=== PATIENT | male | born 1960 | race Caucasian/White ===

== ENCOUNTER → 2018-07-14 | Outpatient (CLI) | payer OTHER ==
[~2018-07-14] MED LIST: Anaspaz0.125 MG PO; CIPRO500 MG PO; Flagyl500 MG PO; GLIP10 PO; Imitrex100 MG PO; Inderal60 MG PO; Indomethacin50 MG PO; METF500C PO; Norco 10-325 T1 EACH PO; OMEP40CA12 PO; OXYC5 PO; Percocet 5-3251 EACH PO; Zofran Odt4 MG SL
[2018-07-14 13:12] LABS: BASOPHILS ABSOLUTE AUTO 0.06 K/mm3 (0.00-0.23); BASOPHILS PERCENT AUTO 1 % (0-2); EOSINOPHILS PERCENT AUTO 1 % (0-6); Hematocrit 44.8 % (37.0-53.0); Hemoglobin 15.2 g/dL (13.5-17.5); IMMATURE GRAN ABSOLUTE AUTO 0.02 K/mm3 (0.00-0.10); IMMATURE GRAN PERCENT AUTO 0 % (0-1); LYMPHOCYTES ABSOLUTE AUTO 1.63 K/mm3 (0.84-5.20); LYMPHOCYTES PERCENT AUTO 22 % (21-46); MONOCYTES ABSOLUTE AUTO 0.92 K/mm3 (0.16-1.47); MONOCYTES PERCENT AUTO 12 % (4-13); Mean Corpuscular HGB 31.5 pg (26.0-34.0); Mean Corpuscular HGB Conc 33.9 g/dL (31.5-36.5); Mean Corpuscular Volume 93 fL (80-100); Mean Platelet Volume 9.5 fL (9.1-12.4); NEUTROPHILS ABSOLUTE AUTO 4.78 K/mm3 (1.96-9.15); NEUTROPHILS PERCENT AUTO 64 % (41-73); Platelet Count 311 K/mm3 (150-400); RDW Coefficient Variation 12.6 % (11.7-14.2); RDW Standard Deviation 43.5 fL (35.1-46.3); Red Blood Cell Count 4.82 M/mm3 (4.30-5.90); White Blood Cell Count 7.51 K/mm3 (4.00-11.30)
[2018-07-14 13:25] LABS: Alanine Aminotransfer (ALT/SGP 54 U/L (12-78); Albumin, Blood 4.1 g/dL (3.4-5.0); Albumin/Globulin Ratio 1.1 (0.8-1.8); Alk Phos 67 U/L (50-136); Anion Gap 8 mmol/L (6-16); Aspartate Aminotrans (AST/SGOT 31 U/L (12-37); Bilirubin, Total 0.8 mg/dL (0.1-1.0); Blood Urea Nitrogen 14 mg/dL (8-24); CO2, Blood 27 mmol/L (21-32); Calcium, Blood 9.5 mg/dL (8.5-10.1); Chloride, Blood 101 mmol/L (98-108); Creatinine, Blood 0.74 mg/dL (0.60-1.20); Globulin, Blood 3.9 g/dL (2.2-4.0); Glomerular Filtration Rate >60 (60-); Glucose, Blood 186 mg/dL (70-99); Potassium, Blood 4.4 mmol/L (3.5-5.5); Prostate Specific Antigen 0.316 ng/mL (0.000-4.000); Sodium, Blood 136 mmol/L (136-145)
== END | disposition home or self-care (01) ==
LOC: LAB 10:40 → LAB SHORT 10:40
PROVIDERS: Family Medicine
DX: Z12.5 Encounter for screening for malignant neoplasm of prostate (principal); I10 Essential (primary) hypertension
CPT/HCPCS: 80048; 80053; 85025; G0103

== ENCOUNTER 2019-02-23 10:37 | Emergency (ER) | payer OTHER ==
[~2019-02-23] VITALS: Ht 182.9 cm; Wt 136.1 kg
[2019-02-23] MEDS ORDERED: METF500 PO (10:57)
[2019-02-23 11:05] LABS: Source, Urine Clean Catch
[2019-02-23 11:07] LABS: BASOPHILS ABSOLUTE AUTO 0.06 K/mm3 (0.00-0.23); BASOPHILS PERCENT AUTO 1 % (0-2); EOSINOPHILS ABSOLUTE AUTO 0.12 K/mm3 (0.00-0.68); EOSINOPHILS PERCENT AUTO 2 % (0-6); Hematocrit 45.3 % (37.0-53.0); Hemoglobin 15.5 g/dL (13.5-17.5); IMMATURE GRAN ABSOLUTE AUTO 0.02 K/mm3 (0.00-0.10); IMMATURE GRAN PERCENT AUTO 0 % (0-1); LYMPHOCYTES ABSOLUTE AUTO 1.64 K/mm3 (0.84-5.20); LYMPHOCYTES PERCENT AUTO 21 % (21-46); MONOCYTES PERCENT AUTO 14 % (4-13); Mean Corpuscular HGB 31.3 pg (26.0-34.0); Mean Corpuscular HGB Conc 34.2 g/dL (31.5-36.5); Mean Corpuscular Volume 92 fL (80-100); Mean Platelet Volume 9.5 fL (9.1-12.4); NEUTROPHILS ABSOLUTE AUTO 4.95 K/mm3 (1.96-9.15); NEUTROPHILS PERCENT AUTO 63 % (41-73); Platelet Count 313 K/mm3 (150-400); RDW Coefficient Variation 12.7 % (11.7-14.2); RDW Standard Deviation 42.4 fL (35.1-46.3); Red Blood Cell Count 4.95 M/mm3 (4.30-5.90); White Blood Cell Count 7.89 K/mm3 (4.00-11.30)
[2019-02-23 11:09] LABS: Bilirubin, Urine Neg (Neg); Blood, Urine Neg (Neg); Glucose Qualitative, Urine 3+ (Neg); Ketones, Urine 3+ (Neg); Leukocyte Esterase, Urine 1+ (Neg); Nitrite, Urine Neg (Neg); Protein, Urine 2+ (Neg); Specific Gravity, Urine 1.025 (1.003-1.022); Urobilinogen, Urine 1+ (Normal)
[2019-02-23 11:16] LABS: Appearance, Urine Clear (Clear); Color, Urine Amber (P-Yellow)
[2019-02-23 11:19] LABS: Bacteria Rare /hpf; Calcium Oxalate Crystals Rare /hpf; Mucus Light ({null, 0-Heavy}); Red Blood Cells, Urine 0-2 /hpf (0-2); Squamous Epithelial Cells Rare /hpf (Few)
[2019-02-23 11:27] LABS: Alanine Aminotransfer (ALT/SGP 70 U/L (12-78); Albumin, Blood 4.2 g/dL (3.4-5.0); Albumin/Globulin Ratio 1.1 (0.8-1.8); Alk Phos 74 U/L (50-136); Anion Gap 8 mmol/L (6-16); Aspartate Aminotrans (AST/SGOT 38 U/L (12-37); Blood Urea Nitrogen 16 mg/dL (8-24); Bun/Creatinine Ratio 21.7 (12.0-20.0); CO2, Blood 26 mmol/L (21-32); Calcium, Blood 9.7 mg/dL (8.5-10.1); Chloride, Blood 105 mmol/L (98-108); Creatinine, Blood 0.74 mg/dL (0.60-1.20); Globulin, Blood 3.9 g/dL (2.2-4.0); Glomerular Filtration Rate >60 (60-); Glucose, Blood 201 mg/dL (70-99); Potassium, Blood 4.2 mmol/L (3.5-5.5); Sodium, Blood 139 mmol/L (136-145); Total Protein, Blood 8.1 g/dL (6.4-8.2)
[2019-02-23] MEDS ORDERED: Protonix40 MG PO (12:34)
[2019-02-23] MEDS ORDERED: ONDA4ODT MM (12:34)
== END 2019-02-23 12:49 | disposition home or self-care (01) ==
LOC: ER 10:37
PROVIDERS: Emergency Medicine
DX: K80.20 Calculus of gallbladder without cholecystitis without obstruction (principal); K21.9 Gastro-esophageal reflux disease without esophagitis; I10 Essential (primary) hypertension; G43.909 Migraine, unspecified, not intractable, without status migrainosus; E11.9 Type 2 diabetes mellitus without complications; Z88.8 Allergy status to other drugs, medicaments and biological substances; Z79.899 Other long term (current) drug therapy; Z79.84 Long term (current) use of oral hypoglycemic drugs
CPT/HCPCS: 36415; 74177; 80053; 81001; 83690; 85025; 87086; 93005; 93010; 96374-59; 99284-25; J1885; Q9967

== ENCOUNTER 2020-01-11 09:45 | Emergency (ER) | payer OTHER ==
[~2020-01-11] VITALS: Ht 182.9 cm; Wt 131.5 kg
[~2020-01-11 09:45] MED LIST changes: +METF500 PO; +ONDA4ODT MM; +Protonix40 MG PO
[2020-01-11 10:45] LABS: BASOPHILS ABSOLUTE AUTO 0.04 K/mm3 (0.00-0.23); BASOPHILS PERCENT AUTO 1 % (0-2); EOSINOPHILS ABSOLUTE AUTO 0.13 K/mm3 (0.00-0.68); EOSINOPHILS PERCENT AUTO 2 % (0-6); Hematocrit 43.5 % (37.0-53.0); Hemoglobin 14.5 g/dL (13.5-17.5); IMMATURE GRAN ABSOLUTE AUTO 0.02 K/mm3 (0.00-0.10); IMMATURE GRAN PERCENT AUTO 0 % (0-1); LYMPHOCYTES PERCENT AUTO 20 % (21-46); MONOCYTES ABSOLUTE AUTO 0.73 K/mm3 (0.16-1.47); MONOCYTES PERCENT AUTO 11 % (4-13); Mean Corpuscular HGB 31.2 pg (26.0-34.0); Mean Corpuscular HGB Conc 33.3 g/dL (31.5-36.5); Mean Corpuscular Volume 94 fL (80-100); Mean Platelet Volume 9.4 fL (9.1-12.4); NEUTROPHILS ABSOLUTE AUTO 4.37 K/mm3 (1.96-9.15); NEUTROPHILS PERCENT AUTO 66 % (41-73); Platelet Count 278 K/mm3 (150-400); RDW Coefficient Variation 12.5 % (11.7-14.2); Red Blood Cell Count 4.65 M/mm3 (4.30-5.90); White Blood Cell Count 6.59 K/mm3 (4.00-11.30)
[2020-01-11 11:07] LABS: Alanine Aminotransfer (ALT/SGP 52 U/L (12-78); Albumin, Blood 3.8 g/dL (3.4-5.0); Albumin/Globulin Ratio 1.1 (0.8-1.8); Alk Phos 64 U/L (50-136); Anion Gap 6 mmol/L (6-16); Aspartate Aminotrans (AST/SGOT 31 U/L (12-37); Bilirubin, Total 0.9 mg/dL (0.1-1.0); Blood Urea Nitrogen 15 mg/dL (8-24); CO2, Blood 28 mmol/L (21-32); Calcium, Blood 9.3 mg/dL (8.5-10.1); Chloride, Blood 104 mmol/L (98-108); Creatinine, Blood 0.79 mg/dL (0.60-1.20); Globulin, Blood 3.6 g/dL (2.2-4.0); Glomerular Filtration Rate >60 (60-); Glucose, Blood 246 mg/dL (70-99); Sodium, Blood 138 mmol/L (136-145); Total Protein, Blood 7.4 g/dL (6.4-8.2)
[2020-01-11 11:23] LABS: Source, Urine Clean Catch
[2020-01-11 11:44] LABS: Appearance, Urine Cloudy (Clear); Bilirubin, Urine Neg (Neg); Blood, Urine 5+ (Neg); Color, Urine Amber (P-Yellow); Glucose Qualitative, Urine 4+ (Neg); Ketones, Urine 2+ (Neg); Leukocyte Esterase, Urine 1+ (Neg); Nitrite, Urine Neg (Neg); Protein, Urine 3+ (Neg); Specific Gravity, Urine 1.025 (1.003-1.022); Urobilinogen, Urine NORM (Normal)
[2020-01-11 12:09] LABS: Bacteria Rare /hpf; Red Blood Cells, Urine TNTC /hpf (0-2); Squamous Epithelial Cells Few /hpf (Few)
[2020-01-11] MEDS ORDERED: HYDR1TAB94 PO (12:45)
[2020-01-26] MEDS ORDERED: OXYACE7.5T PO (16:27)
== END 2020-01-11 12:55 | disposition home or self-care (01) ==
LOC: ER 09:45
PROVIDERS: Emergency Medicine
DX: N13.2 Hydronephrosis with renal and ureteral calculous obstruction (principal); Z88.8 Allergy status to other drugs, medicaments and biological substances; Z79.899 Other long term (current) drug therapy; I10 Essential (primary) hypertension; E11.9 Type 2 diabetes mellitus without complications
CPT/HCPCS: 36415; 74176; 80053; 81001; 85025; 87077; 87086; 87186; 96374; 96375; 99284-25; J1170; J1885

== ENCOUNTER 2020-01-27 06:37 | Emergency (ER) | payer OTHER ==
[~2020-01-27] VITALS: Ht 182.9 cm; Wt 129.3 kg
[~2020-01-27 06:37] MED LIST changes: +HYDR1TAB94 PO; +OXYACE7.5T PO
[2020-01-27 08:00] LABS: Calcium, Ionized (POC) 1.13 mmol/L (1.10-1.46); Chloride (POC) 101 mmol/L (98-108); Creatinine (POC) 1.3 mg/dL (0.8-1.3); Glucose (ISTAT POC) 214 mg/dL (70-99); Hemoglobin (POC) 13.9 g/dL (13.5-17.5); Potassium (POC) 4.4 mmol/L (3.5-5.5); Sodium (POC) 136 mmol/L (135-148); Total CO2 (POC) 23 mmol/L (21-32)
[2020-01-27 08:11] LABS: Source, Urine Clean Catch
[2020-01-27 08:17] LABS: Appearance, Urine Clear (Clear); Bilirubin, Urine Neg (Neg); Blood, Urine Neg (Neg); Color, Urine Yellow (P-Yellow); Glucose Qualitative, Urine 3+ (Neg); Ketones, Urine 1+ (Neg); Leukocyte Esterase, Urine Neg (Neg); Nitrite, Urine Neg (Neg); Protein, Urine Neg (Neg); Urobilinogen, Urine NORM (Normal)
[2020-01-27] MEDS ORDERED: Percocet 7.5-31 EACH PO (08:40)
[2020-01-27] MEDS ORDERED: KETO10 PO (08:40)
== END 2020-01-27 08:49 | disposition home or self-care (01) ==
LOC: ER 06:37
PROVIDERS: Emergency Medicine
DX: N23 Unspecified renal colic (principal); Z88.8 Allergy status to other drugs, medicaments and biological substances; Z79.84 Long term (current) use of oral hypoglycemic drugs; Z79.899 Other long term (current) drug therapy; I10 Essential (primary) hypertension; E11.9 Type 2 diabetes mellitus without complications; Z87.891 Personal history of nicotine dependence
CPT/HCPCS: 80047; 81003; 85014; 96372-59; 99283; J1170; J1885

== ENCOUNTER → 2020-02-27 | Outpatient (CLI) | payer OTHER ==
[~2020-02-27] MED LIST changes: +KETO10 PO; +Percocet 7.5-31 EACH PO
[2020-03-25 13:10] LABS: CA OXALATE DIHYDRATE 10 % (.); CALCIUM OXALATE MONOHYDRATE 90 % (.); COLOR Brown (.); SIZE 2x2 mm (.); WEIGHT 3 mg (.)
== END | disposition home or self-care (01) ==
LOC: LAB 02:00 → LAB UCHC 02:00 → LAB SHORT 02:00
PROVIDERS: Family Medicine
DX: N20.0 Calculus of kidney (principal)
CPT/HCPCS: 82365

== ENCOUNTER → 2021-04-17 | Outpatient (CLI) | payer OTHER ==
[2021-04-17 13:49] LABS: Stool Occult Bld Immuno 1 Negative (NEGATIVE)
== END | disposition home or self-care (01) ==
LOC: LAB SHORT 11:54
PROVIDERS: Internal Medicine Gastroenterology
DX: Z09 Encounter for follow-up examination after completed treatment for conditions other than malignant neoplasm (principal); Z86.010 Personal history of colon polyps
CPT/HCPCS: 82274

== ENCOUNTER 2023-03-05 05:42 | Day surgery (SDC) | payer OTHER ==
[~2023-03-05] VITALS: Ht 182.9 cm; Wt 129.9 kg
[2023-03-05] VITALS (18 sets, daily range): BP systolic 86–104; BP diastolic 52–86
[~2023-03-05 05:42] MED LIST changes: +ATOR10 PO; +GABA300 PO; +MELO7.5 PO; +PIOG15 PO; +Prinivil10 MG PO; +STEGLATRO5 MG PO; +TRIDERM28.4 GM TOP; +VOLTAREN ARTHRI20 GM TOP
--- NOTE | 2023-03-05 17:25 | NUR ---
SHIFT SUMMARY ALTHOUGH SPINAL WORE OFF TOO LATE FOR THERAPY, PT DID GET UP w/ NURSING STAFF. KNEE IMMOBILIZER IN PLACE FOR AMBULATION. PAIN REASONABLY CONTROLLED. EATING, DRINKING, VOIDING.
[2023-03-06 04:27] LABS: BASOPHILS ABSOLUTE AUTO 0.02 K/mm3 (0.00-0.23); BASOPHILS PERCENT AUTO 0 % (0-2); EOSINOPHILS ABSOLUTE AUTO 0.03 K/mm3 (0.00-0.68); EOSINOPHILS PERCENT AUTO 0 % (0-6); Hematocrit 36.3 % (37.0-53.0); Hemoglobin 12.4 g/dL (13.5-17.5); IMMATURE GRAN ABSOLUTE AUTO 0.06 K/mm3 (0.00-0.10); IMMATURE GRAN PERCENT AUTO 1 % (0-1); LYMPHOCYTES ABSOLUTE AUTO 1.35 K/mm3 (0.84-5.20); LYMPHOCYTES PERCENT AUTO 13 % (21-46); MONOCYTES ABSOLUTE AUTO 1.25 K/mm3 (0.16-1.47); MONOCYTES PERCENT AUTO 12 % (4-13); Mean Corpuscular HGB 31.2 pg (26.0-34.0); Mean Corpuscular HGB Conc 34.2 g/dL (31.5-36.5); Mean Corpuscular Volume 91 fL (80-100); Mean Platelet Volume 9.3 fL (9.1-12.4); NEUTROPHILS ABSOLUTE AUTO 7.48 K/mm3 (1.96-9.15); NEUTROPHILS PERCENT AUTO 73 % (41-73); Platelet Count 261 K/mm3 (150-400); RDW Coefficient Variation 13.1 % (11.7-14.2); RDW Standard Deviation 43.7 fL (35.1-46.3); Red Blood Cell Count 3.97 M/mm3 (4.30-5.90); White Blood Cell Count 10.19 K/mm3 (4.00-11.30)
--- NOTE | 2023-03-06 04:50 | NUR ---
SHIFT SUMMARY POD1 L TKA W/ HARDWARE REMOVAL, KNEE IMMOBILIZER AND POLAR PACK IN PLACE. A&OX4, VSS, UP TO BATHROOM X3, TOLERATING WELL. MEDICATED 1X THIS SHIFT FOR 8/10 PAIN, NO ACUTE CHANGES THIS SHIFT. CALL LIGHT IN REACH.
[2023-03-06 05:11] LABS: Bun/Creatinine Ratio 29.7 (12.0-20.0); Calcium, Blood 8.8 mg/dL (8.5-10.1); Creatinine, Blood 0.84 mg/dL (0.60-1.20); Potassium, Blood 3.9 mmol/L (3.5-5.5)
[2023-03-06 06:00] VITALS: BP 101/72
[2023-03-06] MEDS ORDERED: Percocet 5-3251 EACH PO (07:48)
[2023-03-06] MEDS ORDERED: ASPI81CH PO (07:48)
[2023-03-06 08:09] VITALS: BP 115/68
--- NOTE | 2023-03-06 08:11 | NUR ---
THERAPY IN WITH PT.
--- NOTE | 2023-03-06 12:40 | NUR ---
Pt. is awake and sitting in a recliner and welcomes my visit. Facilitated a lengthy life review and esptablished rapport. Pt. displays evidence of being engaged and aware. Considered matters of barry and belief. Spouse arrived later during the visit and was enaged in the life review. Prayed with Pt. Both Pt. and spouse verbalize gratitude for thew spiritual care visit.
[2023-03-06 15:16] VITALS: BP 103/67
--- NOTE | 2023-03-06 15:57 | NUR ---
DISCHARGE PT MET THERAPY GOALS. DC'D IV, CATHETER INTACT. REVIEWED DC INSTRUCTIONS WITH PT/SPOUSE; VERBALIZED UNDERSTANDING. SPOUSE DROPPED OFF PRESCRIPTIONS PRIOR TO DC TO PHARMACY. PT LEAVING IN WC W/POSSESSIONS, DRESSING, POLAR PACK, DC PAPERWORK IN HAND,ACCOMPANIED BY SPOUSE TO RIDE OUTSIDE.
== END 2023-03-06 16:10 | disposition home or self-care (01) ==
LOC: ORSCMMR 05:42 → ORD 07:30 → ORSCMMR 07:30 → ORD 09:15 → SURS 11:09 → ORSCMMR 03-06 16:10
PROVIDERS: Orthopaedic Surgery
PROC: 0QP104Z Removal of Internal Fixation Device from Sacrum, Open Approach (ICD-10-PCS; principal; 2023-03-05 07:35)
PROC: 0SRD0JZ Replacement of Left Knee Joint with Synthetic Substitute, Open Approach (ICD-10-PCS; principal; 2023-03-05 07:35)
DX: M17.0 Bilateral primary osteoarthritis of knee (principal); E11.9 Type 2 diabetes mellitus without complications; I10 Essential (primary) hypertension; E66.01 Morbid (severe) obesity due to excess calories; Z68.41 Body mass index [BMI] 40.0-44.9, adult; Z79.84 Long term (current) use of oral hypoglycemic drugs; Z79.899 Other long term (current) drug therapy
CPT/HCPCS: 36415; 73560-LT; 80048; 82947; 85025; 97110; 97116; 97161; 97166; 97530; 97535; A9270; C1713; C1776; J0171; J0690; J0735; J1100; J1815; J1885; J2250; J2371; J2405; J2704; J2795; J3010; J7120

== ENCOUNTER 2025-01-28 05:43 | Day surgery (SDC) | payer OTHER ==
[~2025-01-28] VITALS: Ht 182.9 cm; Wt 134.4 kg
[2025-01-28] VITALS (12 sets, daily range): BP systolic 106–147; BP diastolic 70–112
[~2025-01-28 05:43] MED LIST changes: +ASPI81CH PO; +GABA100 PO; -GABA300 PO; +MAGNESIUM OXID500 MG PO; +MAGNESIUM PO; +STEGLATRO15 MG PO; -STEGLATRO5 MG PO
[2025-01-28] MEDS ORDERED: CeFAZolin Sodium 3,000 MG in NS 100 ML IV SCH (06:45)
--- NOTE | 2025-01-28 06:56 | NUR ---
History, Chart, Medications and Allergies reviewed before start of procedure. Lungs clear T/O to Auscultation. Patient confirms NPO status and agrees with scheduled surgery. Patient reports completing Chlorhexadine shower X2 prior to admission to hospital. Pre-Op teaching done. Pt verbalizes understanding.
[2025-01-28] MEDS ORDERED: CeFAZolin Sodium 3,000 MG VIAL ONE (06:59)
[2025-01-28] MEDS ORDERED: FentaNYL Citrate 50 MCG/ML 2 ML Injection ONE ×2 (07:07→09:14)
[2025-01-28] MEDS ORDERED: Prochlorperazine Edisylate 10 mg Vial IV PRN (07:15)
[2025-01-28] MEDS ORDERED: Bupivacaine 0.5% HCl 5 MG/ML 30MLVIAL ONE (07:15)
[2025-01-28] MEDS ORDERED: Midazolam HCl 1MG / ML 2ML Vial IV PRN (07:15)
[2025-01-28] MEDS ORDERED: Ondansetron HCl 2 MG / ML 2ML Vial IV PRN (07:20)
[2025-01-28] MEDS ORDERED: Albuterol 2.5 MG/3 ML VIAL INH PRN (07:20)
[2025-01-28] MEDS ORDERED: HYDROmorphone HCl/Pf 1MG SYR IV PRN (07:20)
[2025-01-28] MEDS ORDERED: FentaNYL Citrate 50 MCG/ML 2 ML Injection IV PRN ×2 (07:20)
[2025-01-28] MEDS ORDERED: Midazolam HCl 1MG / ML 2ML Vial ONE (07:26)
[2025-01-28] MEDS ORDERED: Ketorolac Tromethamine 30mg Vial ONE (07:51)
[2025-01-28] MEDS ORDERED: Sugammadex Sodium 200 MG/2ML SDV (100 MG/ML) ONE (07:52)
[2025-01-28] MEDS ORDERED: OxyCODONE 5 mg/Acetamin 325 mg TABLET PO PRN (09:15)
--- NOTE | 2025-01-28 09:57 | NUR ---
REPORT RECEIVED FROM NORBERT ELIZABETH. VSS. PT ON RA. PT A&OX4. PT ABLE TO REPOSITION SELF IN BED. PT HAS DERMABOND TO LEFT KNEE THAT IS CDI. PT ALSO HAS NEOPRIM DRSG TO LEFT HIP THAT IS CDI. POLAR PACK IN PLACE TO LEFT HIP. PT REPORTS 5/10 SHARP PAIN TO LEFT HIP. PT DENIES NAUSEA OR OTHER DISCOMFORTS. PT REQUESTING PO FLUIDS AND TOLERATING THEM WELL.
--- NOTE | 2025-01-28 10:41 | NUR ---
Patient up to Ambulate independently. Gait steady. VSS AND CONSISTENT WITH PT BASELINE. PT HAS NO COMPLAINTS AND VERBALIZES READINESS TO GO HOME. Discharge instructions reviewed with patient. Patient verbalizes understanding. Copy given to patient to take home. PT STATES HE HAS PRESCRIPTION AT HOME. Dressing to procedure site clean, dry, intact with no visible drainage, swelling, erythema or bruising noted. Patient States Post-Procedure ride home has been arranged. Discharged via wheelchair to private car for ride home. PT BELONGINGS RETURNED TO PT.
== END 2025-01-28 10:44 | disposition home or self-care (01) ==
LOC: ORSCMMR 05:43 → ORD 07:30 → ORSCSDS 10:00 → ORD 10:00 → ORSCMMR 10:44 → ORSCSDS 02-26 07:30
PROVIDERS: Orthopaedic Surgery
PROC: 0YQ Anatomical Regions, Lower Extremities, Repair (ICD-10-PCS; principal; 2025-01-28 07:30)
DX: M76.02 Gluteal tendinitis, left hip (principal); I10 Essential (primary) hypertension; Z87.891 Personal history of nicotine dependence; E11.40 Type 2 diabetes mellitus with diabetic neuropathy, unspecified; Z79.84 Long term (current) use of oral hypoglycemic drugs; Z79.899 Other long term (current) drug therapy; E66.01 Morbid (severe) obesity due to excess calories; Z68.41 Body mass index [BMI] 40.0-44.9, adult
CPT/HCPCS: 82947; A9270; C1713; J0690; J1885; J2250; J2704; J3010; J7120

== ENCOUNTER → 2025-06-01 | Outpatient (CLI) | payer OTHER ==
[2025-06-01 13:56] LABS: Alanine Aminotransfer (ALT/SGP 42.0 U/L (12-78); Albumin, Blood 4.1 g/dL (3.4-5.0); Albumin/Globulin Ratio 1.1 (0.8-1.8); Anion Gap 10.0 mmol/L (3-11); Aspartate Aminotrans (AST/SGOT 20.0 U/L (12-37); Bilirubin, Total 1.2 mg/dL (0.1-1.0); Blood Urea Nitrogen 20.0 mg/dL (8-24); CO2, Blood 25.0 mmol/L (21-32); Calcium, Blood 9.2 mg/dL (8.5-10.1); Chloride, Blood 104.0 mmol/L (98-108); Creatinine, Blood 0.63 mg/dL (0.60-1.20); Globulin, Blood 3.7 g/dL (2.2-4.0); Glucose, Blood 204.0 mg/dL (70-99); Potassium, Blood 4.3 mmol/L (3.5-5.5); Sodium, Blood 135.0 mmol/L (136-145); Thyroid Stimulating Hormone 1.6 uIU/mL (0.360-4.800); Total Protein, Blood 7.8 g/dL (6.4-8.2)
[2025-06-01 14:27] LABS: BASOPHILS ABSOLUTE AUTO 0.03 K/mm3 (0.00-0.23); BASOPHILS PERCENT AUTO 0 % (0-2); EOSINOPHILS ABSOLUTE AUTO 0.13 K/mm3 (0.00-0.68); EOSINOPHILS PERCENT AUTO 2 % (0-6); Hematocrit 43.1 % (37.0-53.0); Hemoglobin 14.4 g/dL (13.5-17.5); IMMATURE GRAN ABSOLUTE AUTO 0.02 K/mm3 (0.00-0.10); IMMATURE GRAN PERCENT AUTO 0 % (0-1); LYMPHOCYTES ABSOLUTE AUTO 1.22 K/mm3 (0.84-5.20); LYMPHOCYTES PERCENT AUTO 18 % (21-46); MONOCYTES ABSOLUTE AUTO 0.82 K/mm3 (0.16-1.47); MONOCYTES PERCENT AUTO 12 % (4-13); Mean Corpuscular HGB Conc 33.4 g/dL (31.5-36.5); Mean Corpuscular Volume 90 fL (80-100); NEUTROPHILS ABSOLUTE AUTO 4.50 K/mm3 (1.96-9.15); NEUTROPHILS PERCENT AUTO 67 % (41-73); NRBC ABSOLUTE 0.00 K/mm3 (0.00-0.02); NRBC Auto 0.0 /100 WBC (0.0-0.2); Platelet Count 303 K/mm3 (150-400); RDW Coefficient Variation 13.6 % (11.7-14.2); RDW Standard Deviation 45.1 fL (35.1-46.3)
[2025-06-01 17:04] LABS: Creatinine, Urine Random 116.0 mg/dL (27.00-270.00); Microalb/Creat Ratio UR, Rand 26.81 mg/g (0.000-30.000); Microalbumin, Random Urine 31.1 mg/L (0.000-20.000)
[2025-06-03 11:13] LABS: HIV 1,2 COMBO ANTIGEN/ANTIBODY Negative (Negative)
== END ==
LOC: LAB 12:12 → LAB SHORT 12:12
PROVIDERS: Nurse Practitioner Family
DX: E11.40 Type 2 diabetes mellitus with diabetic neuropathy, unspecified (principal); Z79.4 Long term (current) use of insulin; Z79.899 Other long term (current) drug therapy; Z11.4 Encounter for screening for human immunodeficiency virus [HIV]
CPT/HCPCS: 80053; 82043; 82570; 82607; 82746; 83036; 84443; 85025; 87389